=== PATIENT | female | born 2000 | race Two or more races ===

== ENCOUNTER 2018-11-23 01:56 | Emergency (ER) | payer MEDICAID ==
[~2018-11-23] VITALS: Ht 162.6 cm; Wt 110.7 kg
[2018-11-23 04:37] VITALS: BP 124/62
[2018-11-23] MEDS ORDERED: BACLOFEN 10 MG TAB PO ONE (05:00)
[2018-11-23] MEDS ORDERED: HYDROcodone-ACET 10/325MG TAB PO ONE (05:00)
== END 2018-11-23 05:31 | disposition home or self-care (01) ==
LOC: ER 02:01
DX: M54.16 Radiculopathy, lumbar region (principal)
CPT/HCPCS: 72100; 81002; 81025

== ENCOUNTER 2018-11-26 04:26 | Emergency (ER) | payer MEDICAID ==
[~2018-11-26] VITALS: Ht 162.6 cm; Wt 110.7 kg
[2018-11-26 08:08] VITALS: BP 126/71
[2018-11-26] MEDS ORDERED: KETOROLAC TROMETH 60MG/2ML VIAL IM ONE (09:00)
[2018-11-26] MEDS ORDERED: METHOCARBAMOL 500 MG TAB PO ONE (09:00)
== END 2018-11-26 09:37 | disposition home or self-care (01) ==
LOC: ER 04:26
DX: S39.012D Strain of muscle, fascia and tendon of lower back, subsequent encounter (principal); X58.XXXD Exposure to other specified factors, subsequent encounter
CPT/HCPCS: 96372; 99283; J1885

== ENCOUNTER 2018-12-16 22:52 | Emergency (ER) | payer MEDICAID ==
[~2018-12-16] VITALS: Ht 162.6 cm; Wt 108.9 kg
[2018-12-17 04:38] VITALS: BP 130/56
[2018-12-17] MEDS ORDERED: KETOROLAC TROMETH 60MG/2ML VIAL IM ONE (04:45)
[2018-12-17] MEDS ORDERED: METHOCARBAMOL 500 MG TAB PO ONE (04:45)
== END 2018-12-17 05:10 | disposition home or self-care (01) ==
LOC: ER 22:53
DX: M54.5 Low back pain (principal)
CPT/HCPCS: 96372; 99283; J1885